=== PATIENT | female | born 1990 | race Caucasian/White ===

== ENCOUNTER 2020-03-02 17:02 | Outpatient (REF) | payer OTHER, SELFPAY | END 2020-03-02 17:03 | disposition home or self-care (01) | LOC: HO.LAB 17:02 | PROVIDERS: Visit Provider Internal Medicine | DX: Z20.828 Contact with and (suspected) exposure to other viral communicable diseases (principal) | CPT/HCPCS: 87635 ==

== ENCOUNTER 2021-09-18 17:01 | Emergency (ER) | payer OTHER, SELFPAY ==
[2021-09-18 17:25] VITALS: BP 137/83; PULSE 115; RESP 22; TEMP 37.3; O2SAT 98; BMI 42.0
[2021-09-18 17:48] LABS: COVID-19 Test Positive (Negative); IDNOW Serial# 55D5AD1C
[2021-09-18 18:02] LABS: IDNOW Serial# 9DB6401D; Influenza A Negative (Negative); Influenza B2 Negative (Negative)
[2021-09-18 19:41] VITALS: BP 131/79; PULSE 98; RESP 17; TEMP 37.4; O2SAT 96
--- NOTE | 2021-09-18 20:27 | ED_ITS ---
HPI - URI/Sore Throat General Chief Complaint: General Medical Stated Complaint: flu like symptoms Time Seen by Provider: 09/18/21 20:24 Source: patient Mode of arrival: ambulatory Limitations: no limitations History of Present Illness HPI Narrative: 31-year-old female with no significant past medical history presenting to the ED with her daughter at bedside was similar symptoms with complaints of should active fevers, chills, fatigue, malaise, nasal congestion / rhinorrhea and a dry cough with body aches since last night. She reports that she is not vaccinated to COVID or to flu. She reports her daughter has similar symptoms and her daughter symptoms started prior to hers although no other sick contacts that they are aware of. She denies any measured fevers, dizziness, neck pain/ stiffness, trouble swallowing or breathing, sore throat, loss of taste or smell, chest pain or shortness of breath, dyspnea on exertion, orthopnea, palpitations, paresthesias, nausea/vomiting / diarrhea constipation, black or bloody stools, abdominal pain, back pain, rashes, dysuria, hematuria, abnormal vaginal discharge, lower extremity edema or calf tenderness or any other symptoms complaints or concerns at this time. MD elicited complaint: fever, cough, rhinorrhea and nasal congestion Onset (ago): day(s) (Since last night) Consistency: constant and progressively worsening Severity: moderate Able to tolerate fluids by mouth: Yes Exacerbating factors: nothing Relieving factors: nothing Context: sick contacts ( daughter with similar symptoms) Associated symptoms: fever, chills, myalgias, headache, rhinorrhea, nasal congestion and cough Treatments prior to arrival: none Related Data Previous Rx's Medication Instructions Recorded acetaminophen 500 mg tablet 1,000 mg PO QID PRN #14 tab 09/18/21 (Tylenol Extra Strength) albuterol sulfate 90 mcg/actuation 1 inh INHALATION QID PRN #8.5 g 09/18/21 aerosol inhaler codeine 10 mg-guaifenesin 100 mg/5 5 ml PO Q6H PRN #120 ml 09/18/21 mL oral liquid (Guaifenesin AC) cyclobenzaprine 10 mg tablet 10 mg PO Q8H PRN #14 tab 09/18/21 ibuprofen 800 mg tablet 800 mg PO Q8H PRN #14 tab 09/18/21 Allergies Allergy/AdvReac Type Severity Reaction Status Date / Time No Known Allergies Allergy Verified 09/18/21 17:27 Review of Systems Review of Systems: Constitutional : + Subjective fevers/ chills/fatigue/malaise,No Weight loss, No Night Sweats ENT/Mouth : + nasal congestion/rhinorrhea, No Hearing loss, No Ear Pain, No Sinus Pain, No Hoarseness, No sore throat, No Swallowing Difficulty Eyes: No Eye Pain, No Swelling, No Redness, No Foreign Body, No Discharge, No Vision Changes Cardiovascular : No Chest Pain, No SOB, No Dyspnea on Exertion, No Orthopnea, No Edema, No Palpitations Respiratory : + Cough, No Sputum, No Wheezing, No Smoke Exposure, No Dyspnea Gastrointestinal : No Nausea, No Vomiting, No Diarrhea, No Constipation, No abdominal Pain, No Hematochezia, No Melena Genitourinary : no irregular bleeding, No Dysuria, No Urinary Frequency, No Hematuria, No Urinary Incontinence, No Urgency, No Flank Pain, No Urinary Flow Changes, No Hesitancy Musculoskeletal : No joint pain, + Myalgias, No Joint Swelling Skin : No Skin Lesions, No rash Neuro : No Weakness, No Numbness, No Paresthesias, No Loss of Consciousness, No Dizziness, No Headache Psych : No Anxiety/Panic, No Depression, No SI/HI/AH/VH, No Social Issues, Heme/Lymph: No Bruising, No Bleeding,No Lymphadenopathy Endocrine : No Polyuria, No Polydipsia, No Temperature Intolerance Yes all other systems are reviewed and are negative [facility] Past Medical History Attestation statement: The following information was validated with the patient. Social History Social History Advance Directives: No Physical Exam Vital Signs: Vital Signs: Last Vital Signs Temp 99.4 F 09/18/21 19:41 Pulse 98 09/18/21 19:41 Resp 17 09/18/21 19:41 BP 131/79 09/18/21 19:41 Pulse Ox 96 09/18/21 19:41 BMI result Body Mass Index 42.0 vital signs have been reviewed as normal and appeared to be correct. Blood pressure normal. Heart rate 115. Respiration rate 22. Temperature 99.1. Oxygen saturation normal. Appearance: Alert. Oriented X3. No acute distress. Head: Normal external exam. Normocephalic. Atraumatic. Eyes: PERRLA. EOMI. Conjunctiva and sclera normal. Eyelids normal. ENT: EAC normal. TM's Normal. Pharynx normal. Uvula midline. Moist mucous membranes. No lesions/ulcerations or masses noted on the tongue. Normal voice. No trismus noted. No drooling noted. No muffled voice noted. Neck: Normal inspection. Neck supple. FROM. No adenopathy. Thyroid Normal. No tracheal deviation noted. No crepitus is noted. No meningeal signs. No neck mass noted. No signs of trauma noted. CVS: Normal heart rate and rhythm. Heart sound normal. Pulses normal throughout. No murmurs/rales/gallops. Respiratory: No respiratory distress. Painless inspiration. Breath sounds normal. No wheezes/rales/rhonchi noted. Chest nontender. No crepitus is noted. No signs of trauma noted. No accessory muscle usage noted or decreased air movement noted. No signs of trauma. Abdomen: Soft and nontender. Bowel sounds normal in all 4 quadrants. No distention noted. No organomegaly noted. No visible injury noted. Back: No CVA tenderness. Full range of motion noted. Nontender. No signs of trauma. Patient neuro intact bilaterally and distally on all 4 extremities. Patient's reflexes intact bilaterally and distally on all 4 extremities. No rashes/lesion/induration/fluctuance or signs of infection noted. Skin: Skin warm and dry. Normal skin color. Normal skin turgor. No rashes/lesions/lacerations noted. Extremities: No lower extremity edema. No calf tenderness is noted. Extremities exhibit normal range of motion and nontender. Neuro: Oriented X 3. No motor deficit. No sensory deficit. Reflexes normal. Normal steady gait. No focal neuro deficits noted. CN's II-XII intact bilaterally? Vascular: + radial pulses/+ 2 distal pedal pulses/+2 dorsalis pedis b/l. Normal cap refill. No cyanosis noted to upper extremity nails and lower extremity toes nails. Course Course Course Narrative: 31-year-old female with no significant past medical history presenting to the ED with her daughter at bedside was similar symptoms with complaints of should active fevers, chills, fatigue, malaise, nasal congestion / rhinorrhea and a dry cough with body aches since last night. She reports that she is not vaccinated to COVID or to flu. She reports her daughter has similar symptoms and her daughter symptoms started prior to hers although no other sick contacts that they are aware of. patient positive for COVID. No additional labs or imaging indicated at this time. Will DC home with symptomatic treatment instructions to self isolate and to return if any new or worsening symptoms. Patient and daughter at bedside understand and agree this plan. MDM - URI/Sore Throat Medical Records Attestation: I reviewed the patient's medical records. Lab Data Attestation: I reviewed the patient's lab results. Labs: Lab Results 09/18/21 09/18/21 Range/Units 17:21 17:21 COVID-19 (MERY) Positive A (Negative) COVID-19 Clin Com See Note Influenza Type A (MIRIAM) Negative (Negative) Influenza Type B (MIRIAM) Negative (Negative) Influenza A & B Note See Note Discharge Plan Discharge Clinical Impression: COVID-19 Patient Disposition: Home, Self-Care Instructions: COVID-19 (Coronavirus Disease 2019) (ED) Prescriptions: New cyclobenzaprine 10 mg tablet 10 mg PO Q8H PRN (Reason: Muscle spasm) Qty: 14 0RF codeine-guaifenesin [Guaifenesin AC] 10-100 mg/5 mL liquid 5 ml PO Q6H PRN (Reason: cold symptoms) Qty: 120 0RF albuterol sulfate 90 mcg/actuation HFA aerosol inhaler 1 inh inhalation QID PRN (Reason: shortness of breath or wheezing) Qty: 8.5 0RF ibuprofen 800 mg tablet 800 mg PO Q8H PRN (Reason: pain) Qty: 14 0RF acetaminophen [Tylenol Extra Strength] 500 mg tablet 1,000 mg PO QID PRN (Reason: fever or pain) Qty: 14 0RF Referrals: Physician,Unknown J [Primary Care Provider] - 1 week ( Your PCP) Stand Alone Forms: Work/School Release
[2021-09-18] MEDS: Ibuprofen 800 MG TABLET PO (20:38)
== END 2021-09-18 20:58 | disposition home or self-care (01) ==
PROVIDERS: Emergency Provider Internal Medicine
DX: U07.1 COVID-19 (principal)
CPT/HCPCS: 87502; 87635; 99283; 99284

== ENCOUNTER 2024-02-22 21:59 | Emergency (ER) | payer OTHER, SELFPAY ==
[2024-02-22 22:05] VITALS: BP 144/94; PULSE 120; O2SAT 98
[2024-02-22 22:10] VITALS: BP 125/75; PULSE 124; RESP 18; TEMP 37.2; O2SAT 96
[2024-02-22 22:13] VITALS: BMI 44.3
--- NOTE | 2024-02-22 22:24 | ED_ITS ---
HPI - General Adult General Chief complaint: General Medical Stated complaint: has strep but not feeling better after penicillin Time Seen by Provider: 02/22/24 22:24 Source: patient Mode of arrival: ambulatory Limitations: no limitations History of Present Illness ED Provider: javi HAHN narrative: Patient with sore throat for last 2 days was seen at urgent care center today strep was positive started on Pen-Vee K 500 mg twice a day patient took 2 doses and had fever dense for she came here on arrival patient's temperature was 99 degrees. Related Data Previous Rx's ?Medication ?Instructions ?Recorded acetaminophen 500 mg tablet 1,000 mg (2 x 500 mg) PO QID PRN 09/18/21 (Tylenol Extra Strength) fever or pain #14 tabs albuterol sulfate 90 mcg/actuation 1 inh inhalation QID PRN shortness 09/18/21 aerosol inhaler of breath or wheezing #8.5 grams codeine 10 mg-guaifenesin 100 mg/5 5 ml PO Q6H PRN cold symptoms #120 09/18/21 mL oral liquid (Guaifenesin AC) mL cyclobenzaprine 10 mg tablet 10 mg PO Q8H PRN Muscle spasm #14 09/18/21 tabs ibuprofen 800 mg tablet 800 mg PO Q8H PRN pain #14 tabs 09/18/21 ibuprofen 600 mg tablet 600 mg PO Q6H PRN fever or pain 02/22/24 #30 tabs penicillin V potassium 500 mg 500 mg PO QID #20 tabs 02/22/24 tablet Allergies Allergy/AdvReac Type Severity Reaction Status Date / Time No Known Allergies Allergy Verified 02/22/24 22:14 Review of Systems Review of Systems: Yes all other systems are reviewed and are negative [facility] Social History Social History Smoked in Last 30 Days: No Use of substances other than those prescribed or required for medical reasons: No Advance Directives: No Advance Directives Information Provided: No Do you have a plan to hurt others: No Plan Patient : No Physical Exam ED Vital Signs: Vital Signs - 24 hr 02/22/24 22:10 Temperature 99.0 F Pulse Rate 124 H Respiratory Rate 18 Blood Pressure 125/75 Pulse Oximetry 96 Oxygen Delivery Method Room Air BMI result Body Mass Index 44.3 Appearance: Alert. Oriented X3. No acute distress. ENT: Pharynx erythematous with enlarged tonsils and exudates Oral Mucosa moist Neck: Normal inspection. Neck supple. CVS: Normal heart rate and rhythm. Pulses normal. Respiratory: No respiratory distress. Equal air entry bilateral, no wheezing/rales/rhonchi Skin: Skin warm and dry. Normal skin color. Normal skin turgor. Extremities: No lower extremity edema. Neuro: Oriented X 3. Medical Decision Making Medical Decision Making [facility] Narrative: Patient has strep pharyngitis will increase the dose of penicillin VK to 500 mg 4 times a day for 10 days Discharge Plan Discharge Clinical Impression: Strep pharyngitis Patient Disposition: Home, Self-Care Instructions: Strep Throat (DC) Additional Instructions: Continue penicillin V 500 mg increase the dose to 4 times a day for total 10days Take Tylenol/Motrin for fever Drink plenty of fluids Prescriptions: New ibuprofen 600 mg tablet 600 mg PO Q6H PRN (Reason: fever or pain) Qty: 30 0RF penicillin V potassium 500 mg tablet 500 mg PO QID Qty: 20 0RF No Action cyclobenzaprine 10 mg tablet 10 mg PO Q8H PRN (Reason: Muscle spasm) Qty: 14 0RF codeine-guaifenesin [Guaifenesin AC] 10-100 mg/5 mL liquid 5 ml PO Q6H PRN (Reason: cold symptoms) Qty: 120 0RF albuterol sulfate 90 mcg/actuation HFA aerosol inhaler 1 inh inhalation QID PRN (Reason: shortness of breath or wheezing) Qty: 8.5 0RF ibuprofen 800 mg tablet 800 mg PO Q8H PRN (Reason: pain) Qty: 14 0RF acetaminophen [Tylenol Extra Strength] 500 mg tablet 1,000 mg PO QID PRN (Reason: fever or pain) Qty: 14 0RF Interventions: ED Discharge Assessment Last Done: 02/22/24 22:46 Print Language: Bengali
[2024-02-22 22:46] VITALS: BP 125/75; PULSE 124; RESP 18; TEMP 37.2; O2SAT 96
== END 2024-02-22 22:47 | disposition home or self-care (01) ==
PROVIDERS: Emergency Provider Internal Medicine
DX: J02.0 Streptococcal pharyngitis (principal); R50.9 Fever, unspecified
CPT/HCPCS: 99283; 99284